=== PATIENT | female | born 1980 | race African-American/Black ===

== ENCOUNTER 2025-01-28 19:05 | Emergency (ER) | payer MEDICAID ==
[~2025-01-28] VITALS: Ht 162.6 cm; Wt 57.0 kg
[2025-01-28 19:22] VITALS: O2SAT 100
[2025-01-28] MEDS ORDERED: LEVETIRACETAM 1000MG PREMIX 100 ML IV STA (19:27)
[2025-01-28 19:56] LABS: BASOPHILS % 0.7 % (0.0-2.0); EOSINOPHILS % 2.3 % (0.0-5.0); HEMATOCRIT. 33.5 % (36.0-48.0); HEMOGLOBIN. 11.3 g/dL (12.0-16.0); LYMPHOCYTES % 34.1 % (20.0-50.0); MEAN PLATELET VOLUME 6.9 fl (7.4-10.4); MONOCYTES % 9.0 % (2.0-8.0); NEUTROPHILS % 53.9 % (40.0-76.0); PLATELET 311 x1000/uL (130-400); RED BLOOD CELL COUNT 3.57 mill/uL (4.2-5.4); RED CELL DISTRIBUTION WIDTH 15.3 % (11.6-14.6)
[2025-01-28 20:07] LABS: HCG SCREEN NEGATIVE
[2025-01-28 20:09] LABS: CREATININE 0.8 mg/dL (0.6-1.0); UREA NITROGEN BLOOD 15 mg/dL (9-23)
[2025-01-28 20:10] LABS: ETHANOL BLOOD 22 mg/dL (<10)
[2025-01-28 20:11] LABS: ASPARTATE AMINOTRANSFERASE 19 IU/L (<34); BILIRUBIN DIRECT 0.1 mg/dL (<=3.0)
[2025-01-28 20:12] LABS: BILIRUBIN TOTAL 0.4 mg/dL (0.1-1.0); PROTEIN TOTAL 7.0 g/dL (6.0-8.3)
[2025-01-28] MEDS ORDERED: KEPP500 MT (22:57)
[2025-01-28] MEDS: POTASSIUM CHLORIDE 20MEQ TABLET SR PO ONE (23:08)
[2025-01-28] MEDS: LEVETIRACETAM 1000MG PREMIX 100 ML IV NR (23:09)
[2025-01-28 23:18] VITALS: BP 114/65; PULSE 70; RESP 15; TEMP 37; O2SAT 100
== END 2025-01-28 23:35 | disposition home or self-care (01) ==
LOC: ER 19:18
DX: R56.9 Unspecified convulsions (principal); J45.909 Unspecified asthma, uncomplicated
CPT/HCPCS: 80076; 80048; 80320; 84703; 85025; 36415; 96365; 99284; J1953; G0480